=== PATIENT | female | born 1960 | race Caucasian/White ===

== ENCOUNTER 2017-04-08 09:54 | Emergency (ER) | payer OTHER ==
[2017-04-08 10:27] VITALS: BP 140/78
--- NOTE | 2017-04-08 10:35 | UC ---
General HPI - HPI Summary HPI Summary: pain in right lower anterior lateral ribs after shaking carpets 2 days ago works in "[employer]" and pain is so bad she cannot do her job - History of Current Complaint Chief Complaint: UCChestPain Stated Complaint: RT SIDE RIB AREA PAIN Time Seen by Provider: 04/08/17 10:21 Hx Obtained From: Patient Hx Last Menstrual Period: 3 yrs Onset/Duration: Lasting Days, Still Present Timing: Constant Onset Severity: Moderate Current Severity: Moderate - Allergy/Home Medications Allergies/Adverse Reactions: Allergies Allergy/AdvReac Type Severity Reaction Status Date / Time Amoxicillin Allergy Intermediate Rash Verified 04/08/17 10:27 Home Medications: Home Medications Trolamine Salicylate [Aspercreme] 10 % EX BID PRN 04/08/17 [History Confirmed ] PMH/Surg Hx/FS Hx/Imm Hx Previously Healthy: Yes - Surgical History Surgical History: Yes Surgery Procedure, Year, and Place: left sided back fatty tumor yrs ago, axillary mole - Family History Known Family History: Positive: Cardiac Disease, Respiratory Disease - Social History Occupation: Employed Full-time Lives: With Family Alcohol Use: Rare Substance Use Type: None Smoking Status (MU): Never Smoked Tobacco Review of Systems Constitutional: Negative Skin: Negative Eyes: Negative ENT: Negative Respiratory: Negative Cardiovascular: Negative Gastrointestinal: Negative Genitourinary: Negative Motor: Negative Neurovascular: Negative Musculoskeletal: Arthralgia - right anterior lateral ribs Neurological: Negative Psychological: Negative Is Patient Immunocompromised?: No All Other Systems Reviewed And Are Negative: Yes Physical Exam Triage Information Reviewed: Yes Appearance: Well-Appearing, No Pain Distress, Well-Nourished Vital Signs: Initial Vital Signs Temp 98.2 F 04/08/17 10:20 Pulse 65 04/08/17 10:20 Resp 20 04/08/17 10:20 BP 140/78 04/08/17 10:20 Pulse Ox 100 04/08/17 10:20 Vital Signs Reviewed: Yes Eye Exam: Normal Eyes: Positive: Conjunctiva Clear ENT Exam: Normal ENT: Positive: Normal ENT inspection, Hearing grossly normal, Pharynx normal. Negative: Nasal congestion, Trismus, Muffled voice, Hoarse voice Dental Exam: Normal Neck exam: Normal Neck: Positive: Supple, Nontender, No Lymphadenopathy Respiratory Exam: Normal Respiratory: Positive: Lungs clear, Normal breath sounds, No respiratory distress, No accessory muscle use, Other: - lower anterior lateral right rib pain Cardiovascular Exam: Normal Cardiovascular: Positive: RRR, No Murmur, Pulses Normal, Brisk Capillary Refill Abdominal Exam: Normal Abdomen Description: Positive: Nontender. Negative: CVA Tenderness (R), Hepatomegaly Bowel Sounds: Positive: Present Musculoskeletal Exam: Normal Musculoskeletal: Positive: Strength Intact, ROM Intact, No Edema Neurological Exam: Normal Neurological: Positive: Alert, Muscle Tone Normal Psychological Exam: Normal Skin Exam: Normal Skin: Negative: rashes Diagnostics - Radiology No standard instances Xray Interpretation: Positive (See Comments) - suggestion of right 7/8 non displaced rib fx Radiology Interpretation Completed By: Radiologist Course/Dx - Course Course Of Treatment: rest ultram, tylenol, heat/ice for cmfort--follow osteopenia and elevated BP with pcp - Differential Dx - Multi-Symptom Provider Diagnoses: right 7/8 rib fracture, oateopenia, elevated blood pressure without dx of hypertension Discharge - Discharge Plan Condition: Stable Disposition: HOME Prescriptions: Tramadol HCl [Ultram] 50 mg PO Q6H PRN #16 tab MDD 4 PRN Reason: if needed Patient Education Materials: Calcium and Osteoporosis (ED), Rib Fracture (ED), Hypertension (ED) Forms: *Work Release Referrals: Cm Chan MD [Primary Care Provider] - 2 Weeks
--- NOTE | 2017-04-08 10:56 | RAD ---
Indication: Right rib pain. 3 views of the right ribs are reviewed. Osteopenia is noted. There is suggestion of a nondisplaced fracture of the right eighth and seventh ribs. IMPRESSION: Suggestion of fractures of the right seventh and eighth ribs.
== END 2017-04-08 11:26 | disposition home or self-care (01) ==
LOC: UCCORT 09:54
DX: S22.41XA Multiple fractures of ribs, right side, initial encounter for closed fracture (principal); M85.80 Other specified disorders of bone density and structure, unspecified site; R03.0 Elevated blood-pressure reading, without diagnosis of hypertension; Z88.0 Allergy status to penicillin; X50.9XXA Other and unspecified overexertion or strenuous movements or postures, initial encounter; Y92.9 Unspecified place or not applicable
CPT/HCPCS: 99212; G0463

== ENCOUNTER 2019-06-12 14:12 | Emergency (ER) | payer BC, OTHER ==
[2019-06-12 14:29] VITALS: BP 143/90
--- NOTE | 2019-06-12 15:52 | UC ---
Lower Extremity/Ankle HPI - HPI Summary HPI Summary: 59 yo female with red/painful swollen right lower leg x 1 week no trauma getting more painful to ambulate no f/c no hx PE or DVT - History of Current Complaint Chief Complaint: UCLowerExtremity Stated Complaint: RT LEG PAIN Time Seen by Provider: 06/12/19 15:31 Hx Obtained From: Patient Hx Last Menstrual Period: 3 yrs Onset/Duration: Gradual Onset, Lasting Days Severity Initially: Mild Severity Currently: Moderate Pain Intensity: 7 Pain Scale Used: 0-10 Numeric Aggravating Factor(s): Standing, Ambulation Alleviating Factor(s): Rest, Elevation Able to Bear Weight: Yes Legs: 1 - swollen RLE 2 - red/swollen - Allergies/Home Medications Allergies/Adverse Reactions: Allergies Allergy/AdvReac Type Severity Reaction Status Date / Time amoxicillin Allergy Swelling Verified 06/12/19 14:24 Of Face,Lips,& Throat Home Medications: Home Medications Meloxicam 7.5 mg PO DAILY PRN 12/06/13 [History Confirmed 06/12/19] Calcium [Calcium Aspartate] 1 tab PO DAILY 11/02/15 [History Confirmed 06/12/19] Cholecalciferol TAB* [Vitamin D TAB*] 400 unit PO DAILY 11/02/15 [History Confirmed 06/12/19] Magnesium [Magnesium Elemental] 1 tab PO DAILY 11/02/15 [History Confirmed 06/11] Tramadol HCl [Ultram] 50 mg PO Q6H PRN #16 tab MDD 4 04/08/17 [Rx Confirmed 06/01] Aspirin EC TAB* [Ecotrin EC Low Dose 81 MG*] 1 tab PO DAILY 06/12/19 [History Confirmed 06/12/19] Meclizine TAB* [Antivert 12.5 TAB*] 1 tab PO ONCE PRN 06/12/19 [History Confirmed 06/12/19] Metoprolol Succinate [Metoprolol Succinate ER] 25 mg PO BID 06/12/19 [History Confirmed 06/12/19] PMH/Surg Hx/FS Hx/Imm Hx Previously Healthy: Yes Cardiovascular History: Hypertension, Atrial Fibrillation - Surgical History Surgical History: Yes Surgery Procedure, Year, and Place: left sided back fatty tumor yrs ago. axillary mole. L breast biopsy - Family History Known Family History: Positive: Cardiac Disease, Respiratory Disease - Social History Alcohol Use: Rare Substance Use Type: None Smoking Status (MU): Never Smoked Tobacco Review of Systems All Other Systems Reviewed And Are Negative: Yes Constitutional: Positive: Negative Skin: Positive: Other - red/warm Eyes: Positive: Negative ENT: Positive: Negative Respiratory: Positive: Negative Cardiovascular: Positive: Negative Gastrointestinal: Positive: Negative Genitourinary: Positive: Negative Motor: Positive: Negative Neurovascular: Positive: Negative Musculoskeletal: Positive: Edema Neurological/Mental Status: Positive: Negative Psychological: Positive: Negative Physical Exam Triage Information Reviewed: Yes Appearance: Well-Appearing, No Pain Distress, Well-Nourished Vital Signs: Initial Vital Signs Temp 98.3 F 06/12/19 14:24 Pulse 85 06/12/19 14:24 Resp 20 06/12/19 14:24 BP 143/90 06/12/19 14:24 Pulse Ox 97 06/12/19 14:24 Vital Signs Reviewed: Yes Eyes: Positive: Conjunctiva Clear ENT: Positive: Hearing grossly normal, Uvula midline. Negative: Nasal congestion, Nasal drainage, Tonsillar swelling, Tonsillar exudate, Hoarse voice , Sinus tenderness Dental Exam: Normal Neck: Positive: Supple, Nontender, No Lymphadenopathy Respiratory: Positive: Lungs clear, Normal breath sounds, No respiratory distress, No accessory muscle use Cardiovascular: Positive: RRR, No Murmur Musculoskeletal: Positive: Edema @ - right leg 4 cm>left leg Neurological: Positive: Alert Psychological Exam: Normal Skin Exam: Other - see image Lower Extremity Course/Dx - Course Course Of Treatment: advised pt that this may be due to cellulitis but she needs further workup to check for DVT /other etiologies she wishes to go by pov I spoke to FLORY Willis in ER to [facility] ED - Differential Dx/Diagnosis Provider Diagnosis: Swelling of right lower extremity Discharge ED - Sign-Out/Discharge Documenting (check all that apply): Patient Departure All imaging exams completed and their final reports reviewed: No Studies - Discharge Plan Condition: Stable Disposition: HOME-RECOMMEND TO ED Referrals: Ceci Hernandez PA [Primary Care Provider] - Additional Instructions: Please go directly to the [facility] ER I think you need further investigation of your symptoms - Billing Disposition and Condition Condition: STABLE Disposition: Home-Recommend to ED
== END 2019-06-12 15:51 | disposition home health service (06) ==
LOC: UCCORT 14:12
DX: R22.43 Localized swelling, mass and lump, lower limb, bilateral (principal); I10 Essential (primary) hypertension; I48.91 Unspecified atrial fibrillation; Z79.899 Other long term (current) drug therapy; Z88.0 Allergy status to penicillin
CPT/HCPCS: 99212; G0463